=== PATIENT | male | born 1995 | race Caucasian/White ===

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

== ENCOUNTER 2017-11-29 07:22 | Emergency (ER) | payer SELFPAY ==
[2017-11-29 07:59] VITALS: BP 108/66
--- NOTE | 2017-11-29 08:17 | UC ---
Lazaro Hay Angela, scribed for Mague Wagner MD on 11/29/17 at 0813 . General HPI - HPI Summary HPI Summary: This pt is a 22 y/o male presenting to [facility] c/o sore throat that began last night. He states he was able to drink this morning with some difficulty secondary to pain. Denies drooling. Pt denies ear pain, sinus pain, nausea, vomiting, fever, chills, rash. He denies any sick contacts. His PCP is Dr. Smiley. He is a marijuana user, the last time he used it was last night. Patients medication reviewed this visit. - History of Current Complaint Stated Complaint: SORE THROAT Time Seen by Provider: 11/29/17 07:44 Hx Obtained From: Patient Onset/Duration: Lasting Hours, Still Present Timing: Constant Current Severity: Moderate Pain Intensity: 5 Pain Location at: throat Character: ache Aggravating: nothing Alleviating: nothing Associated Signs & Symptoms: Positive: Other - POS: sore throat. NEG: ear pain, sinus pain, chills, rash, drooling.. Negative: Cough, Fever, Nausea, Vomiting - Allergy/Home Medications Allergies/Adverse Reactions: Allergies Allergy/AdvReac Type Severity Reaction Status Date / Time No Known Allergies Allergy Verified 11/29/17 07:50 PMH/Surg Hx/FS Hx/Imm Hx Previously Healthy: Yes Other Endocrine History: DENIES: diabetes Other Cardiovascular History: DENIES: HTN - Surgical History Surgical History: Yes Surgery Procedure, Year, and Place: APPENDECTOMY - Family History Known Family History: Positive: Diabetes - grandmother and aunt - Social History Occupation: Employed Full-time - entertainment production professional in [place] Lives: With Family Alcohol Use: None Substance Use Type: Marijuana Substance Use Comment - Amount & Last Used: helps to sleep Smoking Status (MU): Never Smoked Tobacco Have You Smoked in the Last Year: No - Immunization History Vaccination Up to Date: Yes Review of Systems Constitutional: Negative Skin: Negative Eyes: Negative ENT: Sore Throat, Other - NEG: ear ache, sinus pain Respiratory: Negative Cardiovascular: Negative Gastrointestinal: Negative Genitourinary: Negative Motor: Negative Neurovascular: Negative Musculoskeletal: Negative Neurological: Negative Psychological: Negative Is Patient Immunocompromised?: No All Other Systems Reviewed And Are Negative: Yes Physical Exam Triage Information Reviewed: Yes Appearance: Well-Appearing, No Pain Distress, Well-Nourished Vital Signs: Initial Vital Signs Temp 98.3 F 11/29/17 07:52 Pulse 66 11/29/17 07:52 Resp 16 11/29/17 07:52 BP 108/66 11/29/17 07:52 Pulse Ox 97 11/29/17 07:52 Vital Signs Reviewed: Yes Eye Exam: Normal Eyes: Positive: Conjunctiva Clear ENT Exam: Normal ENT: Positive: Hearing grossly normal, Pharyngeal erythema, Nasal drainage, TMs normal, Uvula midline. Negative: Tonsillar swelling, Tonsillar exudate, Muffled voice Dental Exam: Normal Neck exam: Normal Neck: Positive: Supple, Nontender, No Lymphadenopathy Respiratory Exam: Normal Respiratory: Positive: Chest non-tender, Lungs clear, Normal breath sounds, No respiratory distress, No accessory muscle use Cardiovascular Exam: Normal Cardiovascular: Positive: RRR, No Murmur Abdominal Exam: Normal Abdomen Description: Positive: Nontender, No Organomegaly, Soft Bowel Sounds: Positive: Present Musculoskeletal Exam: Normal Musculoskeletal: Positive: Strength Intact Neurological Exam: Normal Neurological: Positive: Alert Psychological Exam: Normal Psychological: Positive: Normal Response To Family Skin Exam: Normal Course/Dx - Course Course Of Treatment: Rapid strep test is negative. Pt with sore throat x 12 hours. hydrate. motrin/apap. flonase. cold fluids. return precautions. secretion precautions - Differential Dx - Multi-Symptom Provider Diagnoses: pharyngitis Discharge - Sign-Out/Discharge Documenting (check all that apply): Discharge/Admit/Transfer - Discharge - Discharge Plan Condition: Stable Disposition: HOME Patient Education Materials: Pharyngitis (ED) Referrals: Osman Smiley MD [Primary Care Provider] - Additional Instructions: - Okay to alternate ibuprofen (Advil, Motrin) and Tylenol every 3 hours for pain. Take with food. Do NOT take for more than 4-5 days - Okay to gargle and spit every 4 hours as needed for pain - Stay well hydrated - frequent sips of cold fluids will be soothing to your throat (popsicles, jello, ice cream, ice water). Avoid excess caffeine until your symptoms have resolved. - Do not share eating, drinking utensils. Throw out your toothbrush when your symptoms resolved -Throat infections are spread by oral secretions - do not share eating or drinking utensils until you symptoms are resolved. Clean items that may get your secretions such as cell phones, ipads, computer mouse, television remotes. Once you start to feel better, change your toothbrush and your pillowcase - use nasal spray as instructed -Okay to take a decongestant (Claritin-D, Constance-D, Zyrtec-D) - Contact your doctor to arrange a follow-up appointment as needed - Billing Disposition and Condition Condition: STABLE Disposition: HOME The documentation as recorded by the Lazaro lopez Angela accurately reflects the service I personally performed and the decisions made by , Mague Wagner MD.
== END 2017-11-29 08:18 | disposition home or self-care (01) ==
LOC: UCEAST 07:22
DX: J02.9 Acute pharyngitis, unspecified (principal)
CPT/HCPCS: 87651; 99211; G0463

== ENCOUNTER 2018-02-27 11:00 | Emergency (ER) | payer OTHER ==
[2018-02-27] MEDS ORDERED: Pantoprazole IV* 40 MG IV ONE (11:43)
[2018-02-27 11:55] LABS: ABS Basophils 0 10^3/ul (0-0.2); ABS Eosinophils 0 10^3/ul (0-0.6); ABS Lymphocytes 1.5 10^3/ul (1.0-4.8); ABS Monocytes 0.4 10^3/ul (0-0.8); ABS Neutrophils 5.4 10^3/ul (1.5-7.7); ABS Nucleated RBC 0 10^3/ul; Eosinophil % 0.4 % (0-6); Hematocrit 46 % (42-52); Hemoglobin 15.7 g/dl (14.0-18.0); Lymphocyte % 20.8 % (25-47); Mean Corpuscular HGB Conc 34 g/dl (31-36); Mean Corpuscular Hemoglobin 29 pg (27-31); Mean Corpuscular Volume 87 fL (80-94); Mean Platelet Volume 9.1 um3 (7.4-10.4); Nucleated Red Blood Cells % 0.3; Platelet Count 212 10^3/ul (150-450); Red Blood Count 5.34 10^6/ul (4.00-5.40); Red Cell Distribution Width 12 % (10.5-15); White Blood Count 7.4 10^3/ul (3.5-10.8)
--- NOTE | 2018-02-27 11:55 | ED ---
GI/ HPI - HPI Summary HPI Summary: 22-year-old male presents with intermittent abdominal pain for the past couple months. He states pain is generalized. He states his pain is worst in the morning. He states that he cannot eat in the morning. He admits to nausea and vomiting. He states his been having looser stools. No family history of GI disorders. No blood in his stool. Standing and moving makes it worse. He has been having occasional chest pain. He states pain last couple seconds. Most recent episode was today a couple hours ago. It was sharp pain in the center of his chest. He states he got a numbness into the legs. The symptoms have resolved. He is nonsmoker. No pain or swelling in calf muscles. - History of Current Complaint Chief Complaint: EDAbdPain Time Seen by Provider: 02/27/18 11:24 Stated Complaint: ABD PAIN/VOMITING Pain Intensity: 2 - Allergy/Home Medications Allergies/Adverse Reactions: Allergies Allergy/AdvReac Type Severity Reaction Status Date / Time No Known Allergies Allergy Verified 11/29/17 07:50 Home Medications: Home Medications Dexmethylphenidate HCl [Focalin] 2.5 mg PO DAILY 02/27/18 [History Confirmed 08/16] PMH/Surg Hx/FS Hx/Imm Hx Endocrine/Hematology History: Denies: Hx Diabetes, Hx Thyroid Disease Cardiovascular History: Denies: Hx Hypertension Respiratory History: Denies: Hx Asthma, Hx Chronic Obstructive Pulmonary Disease (COPD) GI History: Denies: Hx Ulcer - Surgical History Surgery Procedure, Year, and Place: APPENDECTOMY Infectious Disease History: No Infectious Disease History: Denies: Hx Clostridium Difficile, Hx Hepatitis, Hx Human Immunodeficiency Virus (HIV), Hx of Known/Suspected MRSA, Hx Tuberculosis, Traveled Outside the in Last 30 Days - Family History Known Family History: Positive: Diabetes - grandmother and aunt, Other - no Gi diseases Negative: Cardiac Disease - Social History Alcohol Use: None Hx Substance Use: No Substance Use Type: Reports: Marijuana Substance Use Comment - Amount & Last Used: helps to sleep Hx Tobacco Use: No Smoking Status (MU): Never Smoked Tobacco Have You Smoked in the Last Year: No Review of Systems Negative: Fever Positive: Chest Pain Negative: Shortness Of Breath Positive: Abdominal Pain, Vomiting, Diarrhea, Nausea All Other Systems Reviewed And Are Negative: Yes Physical Exam Triage Information Reviewed: Yes Vital Signs On Initial Exam: Initial Vitals Temp Pulse Resp BP Pulse Ox 98.4 F 78 18 135/76 100 02/27/18 11:11 02/27/18 11:11 02/27/18 11:11 02/27/18 11:11 02/27/18 11:11 Vital Signs Reviewed: Yes Appearance: Positive: Well-Appearing Skin: Positive: Warm, Dry Head/Face: Positive: Normal Head/Face Inspection Eyes: Positive: Normal, Conjunctiva Clear ENT: Positive: Pharynx normal Respiratory/Lung Sounds: Positive: Clear to Auscultation, Breath Sounds Present Cardiovascular: Positive: Normal, RRR Abdomen Description: Positive: Soft, Other: - mild diffuse tenderness Bowel Sounds: Positive: Present Musculoskeletal: Positive: Normal Neurological: Positive: Normal Psychiatric: Positive: Normal Diagnostics - Vital Signs Vital Signs Temp Pulse Resp BP Pulse Ox 02/27/18 11:11 98.4 F 78 18 135/76 100 - Laboratory Result Diagrams: 02/27/18 11:44 02/27/18 11:44 Lab Statement: Any lab studies that have been ordered have been reviewed, and results considered in the medical decision making process. - CT abd CT Interpretation: No Acute Changes CT Interpretation Completed By: Radiologist - EKG No standard instances Cardiac Rate: NL EKG Rhythm: Sinus Rhythm EKG Interpretation: sinus rhythm Re-Evaluation - Re-Evaluation First Eval Re-Evaluation Time: 12:52 Change: Improved Comment: no abd pain, chest pain, went over lab results GIGU Course/Dx - Course Course Of Treatment: 22-year-old male presents with intermittent abdominal pain for the past couple months. He states pain is generalized. He states his pain is worst in the morning. He states that he cannot eat in the morning. He admits to nausea and vomiting. He states his been having looser stools. No family history of GI disorders. No blood in his stool. Standing and moving makes it worse. He has been having occasional chest pain. He states pain last couple seconds. Most recent episode was today a couple hours ago. It was sharp pain in the center of his chest. He states he got a numbness into the legs. The symptoms have resolved. He is nonsmoker. No pain or swelling in calf muscles. on exam mild diffuse abdomen tenderness. ekg normal sinus rhythm. troponin neg. wbc and crp normal. CT shows fatty liver. will try zofran and pecpid and give referral to GI. patient understand and agrees with plan. - Diagnoses Differential Diagnoses - Male: Gastroenteritis (Viral), Irritable Bowel Syndrome , Urinary Tract Infection, Vomiting Provider Diagnoses: Abdominal pain, Chest pain Discharge - Sign-Out/Discharge Documenting (check all that apply): Patient Departure - Discharge Plan Condition: Good Disposition: HOME Prescriptions: Famotidine TAB* [Pepcid 20 MG TAB*] 20 mg PO BID #28 tab Ondansetron ODT TAB* [Zofran 4 MG Odt TAB*] 4 mg PO Q6H PRN #16 tab.odt PRN Reason: Nausea Patient Education Materials: Abdominal Pain (ED) Referrals: Osman Smiley MD [Primary Care Provider] - Davey Hugo MD [Medical Doctor] - Additional Instructions: try pepcid twice a day for 14 days zofran every 6 hours as needed for nausea Follow up with GI Follow up with primary within 5 days Return to ED if develop any new or worsening symptoms - Billing Disposition and Condition Condition: GOOD Disposition: Home
[2018-02-27 12:17] LABS: EGFR Non-African American 121.5 (>60)
[2018-02-27] MEDS ORDERED: Iohexol 300* (CONTRAST) 10 ML SDV IV ONE (12:53)
--- NOTE | 2018-02-27 13:35 | RAD ---
CLINICAL HISTORY: abdominal pain COMPARISON: December 02, 2007 TECHNIQUE: Multiple contiguous axial CT scans were obtained of the abdomen and pelvis after the administration of intravenous contrast. Coronal and sagittal multiplanar reformations are submitted for review. Oral contrast was administered. Delayed images were obtained through the abdomen. FINDINGS: LUNG BASES: The lung bases are clear. LIVER: The liver is diffusely low in attenuation compared to the spleen. There are no focal hepatic parenchymal masses. BILE DUCTS: There is no intrahepatic or extrahepatic biliary dilatation. GALLBLADDER: The gallbladder is normal, without pericholecystic inflammatory change. PANCREAS: The pancreas is normal, without mass or ductal dilatation. SPLEEN: Normal in size and appearance. UPPER GI TRACT: Evaluation of the gastrointestinal tract is limited by incomplete gastric distention. The upper GI tract is unremarkable. SMALL BOWEL AND MESENTERY: The small bowel is normal in contour, course, and caliber. There is no obstruction or dilatation. COLON: The colon is normal in contour, course, caliber. There is no pericolonic inflammatory change. The appendix is not clearly visualized. There is no inflammatory change of the right lower quadrant. ADRENALS: Normal bilaterally. KIDNEYS: The kidneys are normal in shape, size, contour, and axis. There is no hydronephrosis or nephrolithiasis. BLADDER: The bladder is smooth in contour. PELVIC ORGANS: The prostate gland is normal. The seminal vesicles are symmetric. AORTA: The aorta is normal. IVC: Unremarkable LYMPH NODES: There is no lymphadenopathy by size criteria. ABDOMINAL WALL: There is no evidence for abdominal wall hernia. BONES AND SOFT TISSUES: Unremarkable OTHER: None IMPRESSION: FATTY INFILTRATION OF THE LIVER.
[2018-02-27 15:31] VITALS: BP 112/65
== END 2018-02-27 15:00 | disposition home or self-care (01) ==
LOC: ED 11:00
DX: R10.84 Generalized abdominal pain (principal); R07.9 Chest pain, unspecified; R19.5 Other fecal abnormalities; R20.0 Anesthesia of skin; K76.0 Fatty (change of) liver, not elsewhere classified
CPT/HCPCS: 36415; 74177; 80053; 83690; 84484; 85025; 86140; 93005; 96374; 99283; Q9967